=== PATIENT | male | born 1955 | race Caucasian/White ===

== ENCOUNTER → 2020-07-15 08:44 | Outpatient (CLI) | payer BC, SELFPAY ==
[2020-07-15 10:11] LABS: Add Manual Diff / Slide Review NO; Basophils Absolute Auto 100 /uL (0-100); Basophils Percent Auto 2.2 % (0-2); Eosinophils Absolute Auto 200 /uL (0-450); Hemoglobin 15.7 g/dL (13.5-17.5); Lymphocytes Absolute Auto 900 /uL (1100-4500); Lymphocytes Percent Auto 16.9 % (25-40); Mean Corpuscular HGB Conc 34.1 % (30-36); Mean Corpuscular Hemoglobin 34.8 PG (26-34); Mean Corpuscular Volume 102.1 fL (80-100); Monocytes Absolute Auto 600 /uL (0-900); Monocytes Percent Auto 10.8 % (3-14); Neutrophils Absolute Auto 3600 /uL (1500-7000); Neutrophils Percent Auto 67.1 % (50-75); Platelet Count 260 X10^3/uL (150-400); Red Blood Cell Count 4.51 X10^6/uL (4.5-5.9); Red Cell Distribution Width 17.2 % (11.6-14.8); White Blood Cell Count 5.3 X10^3/uL (4.5-11.0)
[2020-07-15 10:36] LABS: Alanine Aminotransferase 41 IU/L (<50); Albumin 4.5 g/dL (3.5-5.0); Albumin Globulin Ratio 1.4 (1.0-2.8); Alkaline Phosphatase 69 U/L (38-126); Aspartate Aminotransferase 36 IU/L (17-59); BUN Creatinine Ratio 22.2 (6-22); Bilirubin Total 0.7 mg/dL (0.2-1.3); Blood Urea Nitrogen 24 mg/dL (9-20); Calcium 9.5 mg/dL (8.4-10.2); Carbon Dioxide 30 mmol/L (22-32); Chloride 103 mmol/L (98-107); Cholesterol 231 mg/dL (140-199); Estimated Glomerular Filt Rate > 60.0 mL/min (>60); Globulin 3.3 g/dL (1.7-4.1); Glucose 97 mg/dL (80-110); HDL Cholesterol 39 mg/dL (40-60); HEMOLYSIS < 15 (0-50); LDL Cholesterol Calculated 165 mg/dL (<100); Potassium 4.3 mmol/L (3.4-5.1); Sodium 143 mmol/L (137-145); Total Protein 7.8 g/dL (6.3-8.2); Triglycerides 137 mg/dL (35-150)
== END ==
PROVIDERS: PCP Internal Medicine; Referring Provider Internal Medicine; Visit Provider Internal Medicine
DX: E78.2 Mixed hyperlipidemia (principal); K63.5 Polyp of colon
CPT/HCPCS: 36415; 80053; 80061; 84153; 85025

== ENCOUNTER 2021-06-09 12:01 | Emergency (ER) | payer BC, SELFPAY ==
[2021-06-09 12:51] VITALS: BP 132/75; PULSE 68; RESP 20; TEMP 36.8; O2SAT 96; BMI 26.4
--- NOTE | 2021-06-09 12:58 | DI.RAD.S_ITS ---
PROCEDURE: XR FINGER RT MIN 2V INDICATIONS: Smashed between a tree and a rock TECHNIQUE: AP hand, 2 views of the right 2nd finger(s) acquired. COMPARISON: None. FINDINGS: No fracture or dislocation. Soft tissue swelling about the distal second phalanx. IMPRESSION: No acute finding. Soft tissue swelling in the distal 2nd phalanx. Dictated by: Aris Camp M.D. on 06/09/2021 at 13:20 Approved by: Aris Camp M.D. on 06/09/2021 at 13:20
[2021-06-09 16:36] VITALS: BP 143/71; PULSE 56; RESP 16; O2SAT 98
[2021-06-09] MEDS: BUPIVACAINE 0.5% MDV 1 ML INJ (17:19)
--- NOTE | 2021-06-09 17:48 | PC.NURSE ---
after numbing by pac cleansed wound with hibiclens and water and irrigated with 500 ml sterile water, no debris noted after irrigation
--- NOTE | 2021-06-09 18:03 | ED_ITS ---
HPI - Extremity Injury (Upper) <Kj Crocker PA-C - Last Filed: 06/09/21 18:16> General Chief Complaint: Extremity Injury, Upper Stated Complaint: smashed right index finger and poss broken Time Seen by Provider: 06/09/21 16:49 Source: patient Mode of arrival: Ambulatory Limitations: no limitations History of Present Illness HPI narrative: Estevan presents today with chief complaint of smashing his finger in between a piece of wood and a rock earlier today. He reports immediate pain and bleeding. His last tetanus was 6 years ago. He is right-hand dominant. He denies any significant other injuries or acute concerns at this time. He denies being on any blood thinners. Related Data Allergies Allergy/AdvReac Type Severity Reaction Status Date / Time No Known Drug Allergies Allergy Verified 06/09/21 12:51 Review of Systems <Kj Crocker PA-C - Last Filed: 06/09/21 18:16> Review of Systems Narrative: As per HPI Patient History <Kj Crocker PA-C - Last Filed: 06/09/21 18:16> Social History Smoking Status: Never smoker Smoking Status: Never smoker Substance Use Type: does not use Exam <VERNON George Last Filed: 06/09/21 18:16> Narrative Exam Narrative: Exam Narrative: Const General: cooperative, healthy appearing, comfortable, no acute distress, well developed and well groomed Nutritional Appearance: average body habitus Orientation: alert and oriented x3 HENMT Head: normal to inspection and atraumatic Ears: hearing grossly normal bilaterally Nose: external nose normal and nares normal Face and sinus: normal facial exam Neck Neck: normal visual inspection and supple Resp Effort & Inspection: normal respiratory effort, able to speak in complete sentences, no audible wheezes, not labored, no nasal flaring and no respiratory distress Extremities Upper extremities exposed. 4 cm laceration to dorsal distal right index finger. No nail involvement. Distal sensation is intact. Capillary refill is normal. Bony tenderness noted. Neuro General: alert, oriented x3, gait normal, tone normal and moves all extremities Cognition: normal cognition Speech: speech normal Gait: normal gait Psych Appearance: grossly normal and well kempt Mental Status: mental status grossly normal Speech and Movement: speech and movement normal Mood: congruent mood Affect: normal affect Initial Vital Signs Initial Vital Signs: Vital Signs Temperature 98.2 F 06/09/21 12:51 Pulse Rate 68 06/09/21 12:51 Respiratory Rate 20 06/09/21 12:51 Blood Pressure 132/75 06/09/21 12:51 Pulse Oximetry 96 06/09/21 12:51 <Rachel Villagomez DO - Last Filed: 06/13/21 08:56> Initial Vital Signs Initial Vital Signs: Vital Signs Temperature 98.2 F 06/09/21 12:51 Pulse Rate 68 06/09/21 12:51 Respiratory Rate 20 06/09/21 12:51 Blood Pressure 132/75 06/09/21 12:51 Pulse Oximetry 96 06/09/21 12:51 Procedures <VERNON George Last Filed: 06/09/21 18:16> Laceration Repair Laceration 1: Site: hand Side (If applicable): right Size (cm): 4 Description: linear Depth: simple, single layer Local Anesthetic: bupivacaine 0.5% Amount of anesthesia used (mL): 2 Pre-repair: wound explored and irrigated extensively Skin layer closed with: nylon Size (cm): 4-0 Number of sutures: 5 Technique: simple, interrupted Course <VRENON George Last Filed: 06/09/21 18:16> Orders Ordered: Discontinued Medications Bupivacaine HCl (Bupivacaine 0.5% Mdv) 1 ml INJ INTRA-OP ONE Stop: 06/09/21 16:58 Last Admin: 06/09/21 17:19 Dose: 1 ml Documented by: LUI Vital Signs Vital signs: Vital Signs - 8 hr 06/09/21 12:51 06/09/21 16:36 Temperature 98.2 F Pulse Rate 68 56 L Respiratory Rate 20 16 Blood Pressure 132/75 143/71 H Pulse Oximetry 96 98 <DO Eliana Benedict Last Filed: 06/13/21 08:56> Orders Ordered: Discontinued Medications Bupivacaine HCl (Bupivacaine 0.5% Mdv) 1 ml INJ INTRA-OP ONE Stop: 06/09/21 16:58 Last Admin: 06/09/21 17:19 Dose: 1 ml Documented by: LUI Vital Signs Vital signs: Vital Signs - 8 hr 06/09/21 12:51 06/09/21 16:36 Temperature 98.2 F Pulse Rate 68 56 L Respiratory Rate 20 16 Blood Pressure 132/75 143/71 H Pulse Oximetry 96 98 MDM - Extremity Injury (Upper) <Kj Crocker PA-C - Last Filed: 06/09/21 18:16> [facility] Narrative Medical decision making narrative: Differential diagnosis considered includes open fracture, tendon injury, nerve injury. Patient does not have any evidence of fracture or dislocation on x-ray. I cannot visualize the tendon with laceration and he was neurovascularly intact pre digital block. He has intact range of motion. I do not suspect any significant underlying injury. Discharge Plan Departure Patient Disposition: Home Clinical Impression: Finger laceration Qualifiers: Encounter type: initial encounter Finger: index finger Damage to nail status: without damage Foreign body presence: without foreign body Laterality: right Qualified Code(s): S61.210A - Laceration without foreign body of right index finger without damage to nail, initial encounter Instructions: DI for Laceration Repair -- Finger Activity Restrictions/Additional Instructions: It was nice to meet you this afternoon. Please monitor for signs of infection which includes increased redness, swelling, pain, fever and return if you experience any of these symptoms. I would like you to apply topical antibiotics to this for the next 3 days. Please use ibuprofen or acetaminophen as needed for pain management. Sutures will need to come out in 10 days. Please either return here or follow-up with your PCP to get these taken out. Thank you Kj Crocker PA-C Referrals: Jorge Romano MD [Primary Care Provider] - <Rachel Villagomez DO - Last Filed: 06/13/21 08:56> Cosign ED Attending Cosignature Attestation: [facility] was [facility] for [facility]. Documentation has been reviewed.
[2021-06-09 18:16] VITALS: BP 133/70; PULSE 80; RESP 18; O2SAT 99
== END 2021-06-09 18:20 | disposition home or self-care (01) ==
PROVIDERS: Emergency Provider Physician Assistant; PCP Internal Medicine
DX: S61.210A Laceration without foreign body of right index finger without damage to nail, initial encounter (principal); W23.0XXA Caught, crushed, jammed, or pinched between moving objects, initial encounter
CPT/HCPCS: 12002; 73140; 99283

== ENCOUNTER → 2021-11-13 07:11 | Outpatient (CLI) | payer MEDICARE, SELFPAY ==
[2021-11-13 08:05] LABS: COVID19 -Nasal RAPID Negative (Negative)
== END ==
PROVIDERS: PCP Internal Medicine; Visit Provider Student in an Organized Health Care Education/Training Program
DX: Z20.822 Contact with and (suspected) exposure to COVID-19 (principal); J02.9 Acute pharyngitis, unspecified
CPT/HCPCS: 87070; 87635

== ENCOUNTER → 2023-06-18 06:56 | Outpatient (CLI) | payer OTHER, SELFPAY ==
[2023-06-18 07:57] LABS: Hemoglobin A1C% w Est Avg Glu 5.4 % (4.0-6.0)
[2023-06-18 08:07] LABS: Alanine Aminotransferase 27 IU/L (<50); Albumin 4.2 g/dL (3.5-5.0); Albumin Globulin Ratio 1.4 (1.0-2.8); Alkaline Phosphatase 87 U/L (38-126); Aspartate Aminotransferase 32 IU/L (17-59); BUN Creatinine Ratio 15.4 (6-22); Bilirubin Total 0.9 mg/dL (0.2-1.3); Blood Urea Nitrogen 18 mg/dL (9-20); Calcium 9.2 mg/dL (8.4-10.2); Carbon Dioxide 25 mmol/L (22-32); Chloride 103 mmol/L (98-107); Cholesterol 148 mg/dL (140-199); Estimated Glomerular Filt Rate > 60 mL/min (>60); Glucose 90 mg/dL (80-110); HDL Cholesterol 30 mg/dL (40-60); HEMOLYSIS 38 (0-50); LDL Cholesterol Calculated 85 mg/dL (<100); Potassium 5.4 mmol/L (3.4-5.1); Sodium 139 mmol/L (137-145); Total Protein 7.2 g/dL (6.3-8.2); Triglycerides 167 mg/dL (35-150)
[2023-06-19 09:36] LABS: PSA Free % 27.5 % (.); PSA, Total 5.9 ng/mL (0.0-4.0)
== END ==
PROVIDERS: PCP Family Medicine; Referring Provider Family Medicine; Visit Provider Family Medicine
DX: Z13.89 Encounter for screening for other disorder (principal); Z80.42 Family history of malignant neoplasm of prostate; Z80.0 Family history of malignant neoplasm of digestive organs
CPT/HCPCS: 36415; 80053; 80061; 83036; 84153; 84154

== ENCOUNTER → 2023-09-17 06:56 | Outpatient (CLI) | payer MEDICARE, SELFPAY ==
[2023-09-20 11:03] LABS: PSA Free % 33.8 % (.)
== END ==
PROVIDERS: PCP Family Medicine; Referring Provider Family Medicine; Visit Provider Family Medicine
DX: R97.20 Elevated prostate specific antigen [PSA] (principal)
CPT/HCPCS: 36415; 84153; 84154

== ENCOUNTER 2023-09-30 08:13 | Day surgery (SDC) | payer OTHER, SELFPAY ==
[2023-09-30] MEDS: LACTATED RINGERS 1,000 ML 150 ML IV (08:26)
[2023-09-30 08:40] VITALS: BP 147/83; PULSE 66; RESP 16; TEMP 36.1; O2SAT 95; BMI 26.2
--- NOTE | 2023-09-30 09:16 | P.HP_ITS ---
History of Present Illness History of Present Illness Date Patient Seen: 09/30/23 Chief complaint: Screening Colonoscopy Narrative: 68-year-old man family history of colon cancer here for screening colonoscopy. Last colonoscopy 6 years ago. No abdominal concerns today. [facility] Medical History B12 deficiency Allergies (~1969) Right calf pain Hemorrhoid (~1988) Family history of prostate cancer DVT (deep venous thrombosis) Gout (~2022) Colon polyps (~1988) Family history of colon cancer Elevated PSA measurement (~2015) Family History Father Cancer Mother Thyroid disease Sister Hypertension History of heart disease Social History household members: spouse Smoking Status: Never smoker alcohol intake: never Meds Home Medications and Allergies Home Medications Medication Instructions Recorded Confirmed Type rosuvastatin 20 mg tablet 20 mg PO DAILY 11/13/21 09/30/23 History CoQ10 liquid 1 tab PO DAILY 06/17/23 09/30/23 History aged garlic extract 1 tab PO DAILY 06/17/23 09/30/23 History cholecalciferol (vitamin D3) 125 125 mcg PO DAILY 06/17/23 09/30/23 History mcg (5,000 unit) capsule jbetfnp-rebw-tzunf-oreg-capryl 1 tab PO DAILY 06/17/23 09/30/23 History vitamin E (dl, acetate) PO 06/17/23 09/16/23 History finasteride 5 mg tablet 5 mg PO DAILY #90 tabs 09/16/23 09/30/23 Rx Allergies Allergy/AdvReac Type Severity Reaction Status Date / Time No Known Drug Allergies Allergy Verified 09/30/23 08:30 Exam Vital Signs (past 8 hours): - 09/30/23 08:40 Temperature 97.0 F L Pulse Rate 66 Respiratory Rate 16 Blood Pressure 147/83 H Pulse Oximetry 95 Oxygen Delivery Method Room Air Oxygen Delivery Method Room Air Narrative Exam Narrative: General adult man alert oriented no acute distress Chest nonlabored respiration Extremities warm well perfused Assessment & Plan Assessment and plan (1) Family history of colon cancer: Status: Acute Assessment & Plan narrative: The patient requires colorectal screening and colonoscopy is recommended. Technical details were discussed. Risks, benefits, alternatives explained. Risks including but not limited to myocardial infarction, aspiration, bleeding, pain, missed lesion, incomplete examination, need for further radiographic studies, colonic perforation, and need for major abdominal surgery were discussed. All questions were answered to their satisfaction, and they are in agreement with this plan.
--- NOTE | 2023-09-30 09:36 | P.OP.COLON_ITS ---
Operative Date/Time/Diagnoses Date of procedure: 09/30/23 Time of procedure: 09:36 Pre-op diagnosis: Family history of colon cancer Post-op diagnosis: same Procedure & Clinicians Study performed: Colonoscopy Same procedure as scheduled: Yes Indications: Family history of colon cancer Surgeon: Jorge Caldera Procedure Notes Procedure in detail: The history and physical was performed/updated and the patient is ASA class is 2. The procedure was discussed in detail with the patient. Potential risks complications including infection, bleeding, missed diagnosis, perforation, need for surgery, and were explained. Their questions were answered and informed consent was obtained. Patient was brought to the procedure room and placed standard monitoring equipment. The patient's vital signs were monitored continuously throughout the entire procedure. Prior to starting time-out was performed. The patient was placed in the left lateral recumbent position. Procedural sedation was administered by anesthesia. Examination began with a thorough inspection of the perianal area there was no evidence of fissures, fistulae, external hemorrhoids or cutaneous malignancy. The colonoscopy scope was then placed into the anal canal and was advanced to the cecum, which was identified by the ileocecal valve, the appendiceal orifice and the confluence of the taenia. The scope was then slowly withdrawn examining colon thoroughly in all directions, irrigating it of any residual stool. The scope was retroflexed within the rectum The patient tolerated the procedure well. They will be discharged once criteria are met. The prep was of good/excellent quality. The withdrawl time was 7 minutes. FINDINGS * Unremarkable colonoscopy. No masses polyps or inflammation. Specimen(s): none sent Impression: Normal colonoscopy Post-procedure Recommendations: Colonoscopy in 5 years Disposition: same day surgery
[2023-09-30 09:40] VITALS: BP 100/60; PULSE 81; RESP 23; TEMP 36.3; O2SAT 93
[2023-09-30 09:45] VITALS: BP 113/68; PULSE 70; RESP 14; TEMP 36.3; O2SAT 96
[2023-09-30 09:54] VITALS: BP 120/77; PULSE 76; RESP 12; O2SAT 95
== END 2023-09-30 10:12 | disposition home or self-care (01) ==
PROVIDERS: PCP Family Medicine; Referring Provider Surgery; Visit Provider Surgery
PROC: 0DJD8ZZ Inspection of Lower Intestinal Tract, Via Natural or Artificial Opening Endoscopic (ICD-10-PCS; CPT 45378; principal; 2023-09-30 09:15)
DX: Z12.11 Encounter for screening for malignant neoplasm of colon (principal); Z80.0 Family history of malignant neoplasm of digestive organs
CPT/HCPCS: G0105; J2704

== ENCOUNTER → 2024-01-30 07:19 | Outpatient (CLI) | payer OTHER, SELFPAY ==
[2024-01-30 09:12] LABS: COVID-19 CEPHEID 4-PLEX PCR Negative (Negative); Influenza A - CEPHEID Flu A NEGATIVE (NEGATIVE); Influenza B - CEPHEID Flu B NEGATIVE (NEGATIVE); Respiratory Syncytial Virus Negative (Negative)
== END ==
PROVIDERS: PCP Family Medicine; Visit Provider Physician Assistant Surgical
DX: R05.9 Cough, unspecified (principal)
CPT/HCPCS: 0241U

== ENCOUNTER → 2024-04-02 06:49 | Outpatient (CLI) | payer OTHER, SELFPAY ==
[2024-04-02 08:58] LABS: Add Manual Diff / Slide Review NO; Basophils Absolute Auto 0 /uL (0-100); Basophils Percent Auto 0.5 % (0-2); Eosinophils Absolute Auto 400 /uL (0-450); Eosinophils Percent Auto 4.2 % (2-4); Lymphocytes Absolute Auto 600 /uL (1100-4500); Lymphocytes Percent Auto 7.2 % (25-40); Mean Corpuscular Hemoglobin 27.9 PG (26-34); Mean Corpuscular Volume 84.6 fL (80-100); Monocytes Absolute Auto 700 /uL (0-900); Monocytes Percent Auto 8.4 % (3-14); Neutrophils Absolute Auto 7000 /uL (1500-7000); Neutrophils Percent Auto 79.7 % (50-75); Platelet Count 366 X10^3/uL (150-400); Red Cell Distribution Width 20.1 % (11.6-14.8); White Blood Cell Count 8.7 X10^3/uL (4.5-11.0)
[2024-04-02 09:02] LABS: Red Blood Cell Count 7.65 X10^6/uL (4.5-5.9)
[2024-04-02 09:06] LABS: Hematocrit 64.8 % (41-53); Hemoglobin 21.4 g/dL (13.5-17.5)
[2024-04-02 09:14] LABS: Iron 80 ug/dL (49-181)
[2024-04-02 09:18] LABS: Alanine Aminotransferase 39 IU/L (<50); Albumin 4.8 g/dL (3.5-5.0); Albumin Globulin Ratio 1.5 (1.0-2.8); Alkaline Phosphatase 107 U/L (38-126); Aspartate Aminotransferase 55 IU/L (17-59); BUN Creatinine Ratio 17.3 (6-22); Bilirubin Total 1.1 mg/dL (0.2-1.3); Blood Urea Nitrogen 19 mg/dL (9-20); Carbon Dioxide 23 mmol/L (22-32); Chloride 105 mmol/L (98-107); Cholesterol 183 mg/dL (140-199); Estimated Glomerular Filt Rate > 60 mL/min (>60); Globulin 3.1 g/dL (1.7-4.1); Glucose 81 mg/dL (80-110); HDL Cholesterol 42 mg/dL (40-60); HEMOLYSIS 49 (0-50); LDL Cholesterol Calculated 93 mg/dL (<100); Sodium 138 mmol/L (137-145); Total Protein 7.9 g/dL (6.3-8.2); Triglycerides 240 mg/dL (35-150)
[2024-04-02 09:23] LABS: Potassium 5.7 mmol/L (3.4-5.1)
[2024-04-02 09:25] LABS: HEMOLYSIS 109 (0-50)
[2024-04-02 09:26] LABS: Percent Iron Saturation 21 % (20-50); Total Iron Binding Capacity 383 ug/dL (261-462); Transferrin 302 mg/dL (206-381)
[2024-04-02 10:06] LABS: Vitamin B12 > 1000 pg/mL (239-931)
[2024-04-02 11:19] LABS: RBC Morphology Normal Morphology
[2024-04-04 08:07] LABS: PSA Free % 25.2 % (.); PSA, Total 3.1 ng/mL (0.0-4.0)
== END ==
PROVIDERS: PCP Family Medicine; Referring Provider Family Medicine; Visit Provider Family Medicine
DX: E53.8 Deficiency of other specified B group vitamins (principal); R97.20 Elevated prostate specific antigen [PSA]; I82.409 Acute embolism and thrombosis of unspecified deep veins of unspecified lower extremity
CPT/HCPCS: 36415; 80053; 80061; 82607; 83540; 83550; 84153; 84154; 85025

== ENCOUNTER → 2024-04-03 07:40 | Outpatient (CLI) | payer OTHER, SELFPAY ==
[2024-04-03 08:14] LABS: Add Manual Diff / Slide Review NO; Basophils Absolute Auto 0 /uL (0-100); Basophils Percent Auto 0.3 % (0-2); Eosinophils Absolute Auto 400 /uL (0-450); Eosinophils Percent Auto 3.9 % (2-4); Lymphocytes Absolute Auto 600 /uL (1100-4500); Lymphocytes Percent Auto 6.8 % (25-40); Mean Corpuscular HGB Conc 33.1 % (30-36); Mean Corpuscular Hemoglobin 27.9 PG (26-34); Mean Corpuscular Volume 84.2 fL (80-100); Monocytes Absolute Auto 800 /uL (0-900); Monocytes Percent Auto 8.7 % (3-14); Neutrophils Absolute Auto 7500 /uL (1500-7000); Neutrophils Percent Auto 80.3 % (50-75); Platelet Count 351 X10^3/uL (150-400); White Blood Cell Count 9.4 X10^3/uL (4.5-11.0)
[2024-04-03 08:58] LABS: Red Blood Cell Count 7.55 X10^6/uL (4.5-5.9)
[2024-04-03 09:02] LABS: Hematocrit 63.6 % (41-53)
== END ==
PROVIDERS: PCP Family Medicine; Referring Provider Family Medicine; Visit Provider Family Medicine
DX: D58.2 Other hemoglobinopathies (principal); R71.8 Other abnormality of red blood cells
CPT/HCPCS: 85025

== ENCOUNTER 2024-04-03 13:03 | Emergency (ER) | payer OTHER, SELFPAY ==
[2024-04-03 13:06] VITALS: BP 140/66; PULSE 62; RESP 16; TEMP 36.8; O2SAT 94; BMI 27.1
--- NOTE | 2024-04-03 13:30 | ED_ITS ---
HPI - Recheck/Abnormal Lab/Rx General Chief Complaint: Recheck/Abnormal Lab/Rx Stated Complaint: dr rogelio temple has an appt something with blood Time Seen by Provider: 04/03/24 13:08 Source: patient Mode of arrival: Ambulatory History of Present Illness HPI narrative: 69-year-old male presents for abnormal laboratory work. Six months ago patient was started on finasteride by his primary care doctor and he was getting routine labs. His primary doctor called him this morning recommending he have his blood rechecked. This afternoon he received a phone call stating that he needed to come to the emergency department for evaluation. Patient's hemoglobin yesterday 21.4, today 21.0. Patient states that he feels like he has been in his usual state of health. Denies personal or family history of bleeding or clotting disorders. His only medications are finasteride, rosuvastatin, and a daily baby aspirin. Related Data Home Medications Medication Instructions Recorded Confirmed CoQ10 liquid 1 tab PO DAILY 06/17/23 09/30/23 aged garlic extract 1 tab PO DAILY 06/17/23 09/30/23 cholecalciferol (vitamin D3) 125 125 mcg PO DAILY 06/17/23 09/30/23 mcg (5,000 unit) capsule evpevor-rphe-khvfg-oreg-capryl 1 tab PO DAILY 06/17/23 09/30/23 vitamin E (dl, acetate) PO 06/17/23 09/16/23 Previous Rx's Medication Instructions Recorded rosuvastatin 20 mg tablet 20 mg PO DAILY #90 tabs 12/05/23 finasteride 5 mg tablet 5 mg PO DAILY #90 tabs 03/16/24 Allergies Allergy/AdvReac Type Severity Reaction Status Date / Time No Known Drug Allergies Allergy Verified 01/30/24 07:45 Patient History Medical History B12 deficiency Allergies (~1969) Right calf pain Hemorrhoid (~1988) Family history of prostate cancer DVT (deep venous thrombosis) Gout (~2022) Colon polyps (~1988) Family history of colon cancer Elevated PSA measurement (~2015) Family History Father Cancer Mother Thyroid disease Sister Hypertension History of heart disease Social History household members: spouse Smoking Status: Never smoker alcohol intake: never Smoking Status: Never smoker Substance Use Type: does not use Exam Initial Vital Signs Initial Vital Signs: Vital Signs Temperature 98.2 F 04/03/24 13:06 Pulse Rate 62 04/03/24 13:06 Respiratory Rate 16 04/03/24 13:06 Blood Pressure 140/66 04/03/24 13:06 Pulse Oximetry 94 04/03/24 13:06 Oxygen Delivery Method Room Air 04/03/24 13:06 Const: Awake, alert, no acute distress, nontoxic appearing Cardiac: regular rate, regular rhythm RESP: unlabored, clear bilaterally, no wheezing GI: Soft, nontender, nondistended, no rebound, no guarding MSK: Atraumatic, full range of motion, pulses equal Skin: Warm, Dry, intact, no rashes Neuro: AO x3, CN II-XII grossly intact, moves all extremities Course Orders Ordered: ED Orders 04/03/24 13:25 CBC Auto Diff [Complete Blood Count AUTO DIFF] Stat Ferritin Stat LDH [Lactate Dehydrogenase] Stat PT [Prothrombin Time INR] Stat Discontinued Medications Sodium Chloride (Normal Saline 0.9%) 1,000 mls @ 1,000 mls/hr IV BOLUS ONE Stop: 04/03/24 14:08 Last Admin: 04/03/24 13:39 Dose: 1,000 mls/hr Documented By: ELENI Vital Signs Vital signs: Vital Signs - 8 hr 04/03/24 13:06 Temperature 98.2 F Pulse Rate 62 Respiratory Rate 16 Blood Pressure 140/66 Pulse Oximetry 94 Oxygen Delivery Method Room Air MDM - Recheck/Abnormal Lab/Rx Lab Data 04/03/24 13:25 Labs: Lab Results 04/03/24 Range/Units 13:25 WBC 9.8 (4.5-11.0) X10^3/uL RBC 7.28 H (4.5-5.9) X10^6/uL Hgb 20.5 H (13.5-17.5) g/dL Hct 61.4 H* (41-53) % MCV 84.3 (80-100) fL MCH 28.2 (26-34) PG MCHC 33.4 (30-36) % RDW 19.4 H (11.6-14.8) % Plt Count 369 (150-400) X10^3/uL Neut % (Auto) 79.2 H (50-75) % Lymph % (Auto) 7.8 L (25-40) % [place] % (Auto) 8.3 (3-14) % Eos % (Auto) 3.1 (2-4) % Baso % (Auto) 1.6 (0-2) % Neut # (Auto) 7700 H (0394-2336) /uL Lymph # (Auto) 800 L (9935-0793) /uL [place] # (Auto) 800 (0-900) /uL Eos # (Auto) 300 (0-450) /uL Baso # (Auto) 200 H (0-100) /uL PT 11.4 (9.4-12.5) SECONDS INR 1.0 (0.9-1.3) Lactate Dehydrogenase 306 H (120-246) U/L MDM Narrative Medical decision making narrative: Well-appearing patient with incidental findings of elevated hemoglobin and hematocrit. Confirmed on recheck. Case discussed with Dr. Tomlinson of Hematology Oncology at [facility]. He states that this is not something that requires emergent phlebotomy and patient was already on aspirin, which is what would be recommended for someone with elevated hemoglobin and hematocrit. He stated that it would need to be determined if patient has primary versus secondary polycythemia vera, and recommended drawing of erythropoietin and CLAUDIO 2 mutation testing. Patient can be followed up with a Heme-Onc referral. Discussed Heme-Onc recommendations with patient's primary care doctor Dr. Jain, who will order the testing and he will follow up patient in clinic. Patient has no known secondary causes of polycythemia vera including sleep apnea, testosterone use, or tobacco use. Patient updated of Heme-Onc recommendations. He will follow up with his primary care doctor. Discharge Plan Departure Patient Disposition: Home Clinical Impression: Elevated hemoglobin Instructions: DI for Primary Polycythemia Activity Restrictions/Additional Instructions: You were seen today for elevated hemoglobin, which falls under the umbrella of ?polycythemic?. There are several different types of this condition, and more work needs to be done before you find out what kind you have. Follow up with Dr. Mendes for further lab testing. Prescriptions: No Action rosuvastatin 20 mg tablet 20 mg PO DAILY Qty: 90 2RF finasteride 5 mg tablet 5 mg PO DAILY Qty: 90 1RF aged garlic extract 1 tab PO DAILY uafugpd-krjf-gthuy-oreg-capryl 1 tab PO DAILY CoQ10 liquid 1 tab PO DAILY vitamin E (dl, acetate) PO Rx Instructions: 400 IU cholecalciferol (vitamin D3) 125 mcg (5,000 unit) capsule 125 mcg PO DAILY Referrals: Myron Mendes, [Primary Care Provider] - Stand Alone Forms: Patient Portal/API
[2024-04-03] MEDS: SODIUM CHLORIDE 0.9% 1,000 ML 1000 ML IV (13:39)
[2024-04-03 13:50] LABS: Prothrombin Time 11.4 SECONDS (9.4-12.5)
[2024-04-03 13:53] LABS: Add Manual Diff / Slide Review NO; Basophils Absolute Auto 200 /uL (0-100); Basophils Percent Auto 1.6 % (0-2); Eosinophils Absolute Auto 300 /uL (0-450); Eosinophils Percent Auto 3.1 % (2-4); Hemoglobin 20.5 g/dL (13.5-17.5); Lactate Dehydrogenase 306 U/L (120-246); Lymphocytes Absolute Auto 800 /uL (1100-4500); Lymphocytes Percent Auto 7.8 % (25-40); Mean Corpuscular HGB Conc 33.4 % (30-36); Mean Corpuscular Hemoglobin 28.2 PG (26-34); Mean Corpuscular Volume 84.3 fL (80-100); Monocytes Absolute Auto 800 /uL (0-900); Monocytes Percent Auto 8.3 % (3-14); Neutrophils Absolute Auto 7700 /uL (1500-7000); Neutrophils Percent Auto 79.2 % (50-75); Platelet Count 369 X10^3/uL (150-400); Red Cell Distribution Width 19.4 % (11.6-14.8); White Blood Cell Count 9.8 X10^3/uL (4.5-11.0)
[2024-04-03 13:56] LABS: Red Blood Cell Count 7.28 X10^6/uL (4.5-5.9)
[2024-04-03 13:59] LABS: Hematocrit 61.4 % (41-53)
[2024-04-03 14:48] LABS: Ferritin 12 ng/mL (18-464)
[2024-04-03 15:08] VITALS: BP 127/88; PULSE 60; RESP 16; TEMP 36.6; O2SAT 93
== END 2024-04-03 15:09 | disposition home or self-care (01) ==
PROVIDERS: Emergency Provider Emergency Medicine; PCP Family Medicine
DX: D58.2 Other hemoglobinopathies (principal)
CPT/HCPCS: 82728; 83615; 85025; 85610; 96360; 99283; 99284

== ENCOUNTER → 2024-04-05 13:33 | Outpatient (CLI) | payer OTHER, SELFPAY ==
[2024-04-07 19:08] LABS: Erythropoietin 1.1 mIU/mL (2.6-18.5)
== END ==
PROVIDERS: PCP Family Medicine; Referring Provider Family Medicine; Visit Provider Family Medicine
DX: D45 Polycythemia vera (principal)
CPT/HCPCS: 36415; 82668

== ENCOUNTER → 2024-04-12 06:51 | Outpatient (CLI) | payer OTHER, SELFPAY | PROVIDERS: PCP Family Medicine; Referring Provider Family Medicine; Visit Provider Family Medicine | DX: D45 Polycythemia vera (principal) | CPT/HCPCS: 36415; 81270 ==

== ENCOUNTER → 2024-08-11 09:32 | Outpatient (CLI) | payer OTHER, SELFPAY ==
[2024-08-11 12:28] LABS: Hematocrit 64.1 % (41-53)
[2024-08-11 12:33] LABS: Ferritin 14 ng/mL (18-464)
== END ==
PROVIDERS: PCP Family Medicine; Referring Provider Internal Medicine Hematology & Oncology; Visit Provider Internal Medicine Hematology & Oncology
DX: D45 Polycythemia vera (principal)
CPT/HCPCS: 36415; 82728; 85014

== ENCOUNTER → 2024-08-26 14:11 | Outpatient (CLI) | payer OTHER, SELFPAY ==
[2024-08-26 14:37] LABS: Add Manual Diff / Slide Review NO; Basophils Absolute Auto 100 /uL (0-100); Basophils Percent Auto 0.9 % (0-2); Eosinophils Absolute Auto 200 /uL (0-450); Eosinophils Percent Auto 1.6 % (2-4); Hematocrit 59.6 % (41-53); Hemoglobin 19.2 g/dL (13.5-17.5); Lymphocytes Absolute Auto 600 /uL (1100-4500); Lymphocytes Percent Auto 4.4 % (25-40); Mean Corpuscular HGB Conc 32.2 % (30-36); Mean Corpuscular Hemoglobin 26.3 PG (26-34); Mean Corpuscular Volume 81.7 fL (80-100); Monocytes Absolute Auto 900 /uL (0-900); Monocytes Percent Auto 6.5 % (3-14); Neutrophils Absolute Auto 11700 /uL (1500-7000); Neutrophils Percent Auto 86.6 % (50-75); Platelet Count 426 X10^3/uL (150-400); Red Cell Distribution Width 18.1 % (11.6-14.8); White Blood Cell Count 13.5 X10^3/uL (4.5-11.0)
[2024-08-26 14:38] LABS: Red Blood Cell Count 7.29 X10^6/uL (4.5-5.9)
[2024-08-26 14:58] LABS: Alanine Aminotransferase 27 IU/L (<50); Albumin 4.4 g/dL (3.5-5.0); Albumin Globulin Ratio 1.5 (1.0-2.8); Alkaline Phosphatase 95 U/L (38-126); Aspartate Aminotransferase 39 IU/L (17-59); BUN Creatinine Ratio 25.2 (6-22); Bilirubin Total 0.9 mg/dL (0.2-1.3); Blood Urea Nitrogen 31 mg/dL (9-20); Calcium 9.5 mg/dL (8.4-10.2); Carbon Dioxide 23 mmol/L (22-32); Chloride 103 mmol/L (98-107); Estimated Glomerular Filt Rate > 60 mL/min (>60); Glucose 95 mg/dL (80-110); HEMOLYSIS 16 (0-50); Sodium 135 mmol/L (137-145); Total Protein 7.4 g/dL (6.3-8.2)
[2024-08-28 07:09] LABS: PSA Free % 31.5 % (.); PSA, Total 4.8 ng/mL (0.0-4.0)
== END ==
PROVIDERS: PCP Family Medicine; Referring Provider Internal Medicine Hematology & Oncology; Visit Provider Internal Medicine Hematology & Oncology
DX: D45 Polycythemia vera (principal); R97.20 Elevated prostate specific antigen [PSA]; M10.9 Gout, unspecified; Z80.42 Family history of malignant neoplasm of prostate
CPT/HCPCS: 80053; 84153; 84154; 85025

== ENCOUNTER → 2024-09-07 14:02 | Outpatient (CLI) | payer OTHER, SELFPAY ==
[2024-09-07 15:29] LABS: Hematocrit 58.6 % (41-53)
[2024-09-07 16:47] LABS: Ferritin 10 ng/mL (18-464)
== END ==
PROVIDERS: PCP Family Medicine; Referring Provider Internal Medicine Hematology & Oncology; Visit Provider Internal Medicine Hematology & Oncology
DX: D45 Polycythemia vera (principal)
CPT/HCPCS: 36415; 82728; 85014

== ENCOUNTER → 2024-09-21 06:56 | Outpatient (CLI) | payer OTHER, SELFPAY ==
[2024-09-21 08:52] LABS: Ferritin 12 ng/mL (18-464)
== END ==
PROVIDERS: PCP Family Medicine; Referring Provider Internal Medicine Hematology & Oncology; Visit Provider Internal Medicine Hematology & Oncology
DX: D45 Polycythemia vera (principal)
CPT/HCPCS: 36415; 82728; 85014

== ENCOUNTER → 2024-10-06 06:43 | Outpatient (CLI) | payer OTHER, SELFPAY ==
[2024-10-06 09:25] LABS: Hematocrit 52.3 % (41-53)
== END ==
PROVIDERS: PCP Family Medicine; Referring Provider Internal Medicine Hematology & Oncology; Visit Provider Internal Medicine Hematology & Oncology
DX: D45 Polycythemia vera (principal)
CPT/HCPCS: 36415; 85014

== ENCOUNTER → 2024-10-21 12:18 | Outpatient (CLI) | payer OTHER, SELFPAY ==
[2024-10-21 12:38] LABS: Hematocrit 52.2 % (41-53); Hemoglobin 16.2 g/dL (13.5-17.5)
== END ==
PROVIDERS: PCP Family Medicine; Referring Provider Internal Medicine Hematology & Oncology; Visit Provider Internal Medicine Hematology & Oncology
DX: D45 Polycythemia vera (principal)
CPT/HCPCS: 36415; 85014; 85018

== ENCOUNTER → 2024-11-04 07:13 | Outpatient (CLI) | payer OTHER, SELFPAY ==
[2024-11-04 07:30] LABS: Hematocrit 49.8 % (41-53); Hemoglobin 15.7 g/dL (13.5-17.5)
== END ==
LOC: LAB 07:17
PROVIDERS: PCP Family Medicine; Referring Provider Internal Medicine Hematology & Oncology; Visit Provider Internal Medicine Hematology & Oncology
DX: D45 Polycythemia vera (principal)
CPT/HCPCS: 36415; 85014; 85018

== ENCOUNTER → 2024-11-18 07:47 | Outpatient (CLI) | payer OTHER, SELFPAY ==
[2024-11-18 08:18] LABS: Hematocrit 46.5 % (41-53)
== END ==
PROVIDERS: PCP Family Medicine; Referring Provider Internal Medicine Hematology & Oncology; Visit Provider Internal Medicine Hematology & Oncology
DX: D45 Polycythemia vera (principal)
CPT/HCPCS: 36415; 85014

== ENCOUNTER → 2024-12-02 08:32 | Outpatient (CLI) | payer OTHER, SELFPAY ==
[2024-12-02 10:03] LABS: Hematocrit 44.3 % (41-53)
== END ==
PROVIDERS: PCP Family Medicine; Referring Provider Internal Medicine Hematology & Oncology; Visit Provider Internal Medicine Hematology & Oncology
DX: D45 Polycythemia vera (principal)
CPT/HCPCS: 36415; 85014

== ENCOUNTER → 2024-12-30 06:51 | Outpatient (CLI) | payer OTHER, SELFPAY ==
[2024-12-30 08:08] LABS: Add Manual Diff / Slide Review NO; Basophils Absolute Auto 100 /uL (0-100); Basophils Percent Auto 0.9 % (0-2); Eosinophils Absolute Auto 500 /uL (0-450); Hematocrit 43.9 % (41-53); Hemoglobin 13.8 g/dL (13.5-17.5); Lymphocytes Absolute Auto 800 /uL (1100-4500); Lymphocytes Percent Auto 7.4 % (25-40); Mean Corpuscular HGB Conc 31.4 % (30-36); Mean Corpuscular Hemoglobin 22.2 PG (26-34); Mean Corpuscular Volume 70.7 fL (80-100); Monocytes Absolute Auto 600 /uL (0-900); Monocytes Percent Auto 5.6 % (3-14); Neutrophils Absolute Auto 8600 /uL (1500-7000); Neutrophils Percent Auto 81.1 % (50-75); Platelet Count 619 X10^3/uL (150-400); Red Blood Cell Count 6.21 X10^6/uL (4.5-5.9); Red Cell Distribution Width 18.1 % (11.6-14.8); White Blood Cell Count 10.6 X10^3/uL (4.5-11.0)
[2024-12-30 08:13] LABS: HEMOLYSIS < 15 (0-50); Iron 24 ug/dL (49-181)
[2024-12-30 08:18] LABS: Alanine Aminotransferase 25 IU/L (<50); Albumin 4.5 g/dL (3.5-5.0); Albumin Globulin Ratio 1.7 (1.0-2.8); Alkaline Phosphatase 78 U/L (38-126); Aspartate Aminotransferase 31 IU/L (17-59); BUN Creatinine Ratio 21.9 (6-22); Bilirubin Total 0.6 mg/dL (0.2-1.3); Blood Urea Nitrogen 28 mg/dL (9-20); Calcium 9.9 mg/dL (8.4-10.2); Carbon Dioxide 22 mmol/L (22-32); Chloride 104 mmol/L (98-107); Estimated Glomerular Filt Rate > 60 mL/min (>60); Globulin 2.7 g/dL (1.7-4.1); Glucose 98 mg/dL (80-110); HEMOLYSIS < 15 (0-50); Potassium 4.7 mmol/L (3.4-5.1); Sodium 138 mmol/L (137-145); Total Protein 7.2 g/dL (6.3-8.2)
[2024-12-30 08:24] LABS: Percent Iron Saturation 6 % (20-50); Total Iron Binding Capacity 383 ug/dL (261-462); Transferrin 309 mg/dL (206-381)
[2024-12-30 08:50] LABS: Ferritin 6 ng/mL (18-464)
== END ==
PROVIDERS: PCP Family Medicine; Referring Provider Nurse Practitioner Gerontology; Visit Provider Nurse Practitioner Gerontology
DX: D45 Polycythemia vera (principal)
CPT/HCPCS: 36415; 80053; 82728; 83540; 83550; 85025

== ENCOUNTER → 2025-01-13 06:54 | Outpatient (CLI) | payer OTHER, SELFPAY ==
[2025-01-13 08:18] LABS: Hematocrit 45.3 % (41-53)
== END ==
PROVIDERS: PCP Family Medicine; Referring Provider Internal Medicine Hematology & Oncology; Visit Provider Internal Medicine Hematology & Oncology
DX: D45 Polycythemia vera (principal)
CPT/HCPCS: 36415; 85014

== ENCOUNTER → 2025-02-17 06:45 | Outpatient (CLI) | payer OTHER, SELFPAY ==
[2025-02-17 07:36] LABS: Hematocrit 42.4 % (41-53); Hemoglobin 13.5 g/dL (13.5-17.5)
== END ==
PROVIDERS: PCP Family Medicine; Referring Provider Internal Medicine Hematology & Oncology; Visit Provider Internal Medicine Hematology & Oncology
DX: D45 Polycythemia vera (principal)
CPT/HCPCS: 36415; 85014; 85018

== ENCOUNTER → 2025-03-16 06:48 | Outpatient (CLI) | payer OTHER, SELFPAY ==
[2025-03-16 07:54] LABS: Hematocrit 42.7 % (41-53)
[2025-03-16 08:59] LABS: Ferritin 7 ng/mL (18-464)
== END ==
PROVIDERS: PCP Family Medicine; Referring Provider Internal Medicine Hematology & Oncology; Visit Provider Internal Medicine Hematology & Oncology
DX: D45 Polycythemia vera (principal)
CPT/HCPCS: 36415; 82728; 85014

== ENCOUNTER → 2025-04-21 06:44 | Outpatient (CLI) | payer OTHER, SELFPAY ==
[2025-04-21 08:09] LABS: Hematocrit 44.5 % (41-53)
== END ==
PROVIDERS: PCP Family Medicine; Referring Provider Internal Medicine Hematology & Oncology; Visit Provider Internal Medicine Hematology & Oncology
DX: D45 Polycythemia vera (principal)
CPT/HCPCS: 36415; 85014

== ENCOUNTER → 2025-05-12 15:06 | Outpatient (CLI) | payer OTHER, SELFPAY ==
--- NOTE | 2025-05-12 15:07 | DI.MRI.S_ITS ---
PROCEDURE: MR PELVIC PROSTATE PROTOCOL INDICATIONS: 70 y/o M w/ elevated PSA, please eval TECHNIQUE: Coronal HASTE, axial T1 FSE with fat saturation, 3-plane nonbreath-hold T2 FSE. After the administration of contrast, dynamic axial, delayed axial and coronal VIBE or 2-D FLASH with fat saturation through the pelvis. Diffusion weighted imaging and ADC was performed. COMPARISON: [facility], CT, CT ABDOMEN PELVIS WITH CONTRAST, 08/04/2024, 12:26. FINDINGS: Image quality: Diffusion weighted and dynamic contrast enhanced images are diagnostic. Prostate: Gland size is 5.1 x 4.6 x 4.7 cm; ellipsoid gland volume is 57 mL. Estimated PSA density is 0.0842 Transitional zone heterogenous nodules are present, either well encapsulated or mostly encapsulated, compatible with PI-RADS 1 or 2 likely BPH nodules. Left mid gland 1 x 1 x 1.1 cm lesion (5/17, 4/12). DWI score 4. T2 score 4. DCE positive. PI-RADS 4. Seminal vesicles appear clear. No extracapsular disease identified. Genitourinary system: Trabeculated urinary bladder, usually due to chronic obstruction. Bowel and peritoneum: No bowel obstruction or lower abdomen. No pathologic ascites Nodes and vessels: No aneurysmal artery identified. No enlarged lymph nodes by size criteria. Soft tissues: Small fat containing inguinal hernias. Bones: No aggressive appearing osseous abnormality in the pelvis. Enhancing L5 vertebral body lesion is present. IMPRESSION: PI-RADS 4 lesion measuring up to 1.1 cm is seen in the left posterolateral peripheral zone mid gland. No definite extracapsular disease or seminal vesicle involvement No enlarged lymph nodes by size criteria in the pelvis. Possibly enhancing L5 vertebral body lesion is seen. Differential includes vertebral hemangioma or metastatic disease, if targeted biopsies are positive. PSMA PET could further evaluate if clinically appropriate. Dictated by: Minor Ordonez M.D. on 05/14/2025 at 6:35 Approved by: Minor Ordonez M.D. on 05/14/2025 at 6:41
== END ==
PROVIDERS: PCP Family Medicine; Referring Provider Urology; Visit Provider Urology
DX: N42.9 Disorder of prostate, unspecified (principal); N32.89 Other specified disorders of bladder; R97.20 Elevated prostate specific antigen [PSA]; K40.90 Unilateral inguinal hernia, without obstruction or gangrene, not specified as recurrent
CPT/HCPCS: 72197; A9579

== ENCOUNTER → 2025-05-19 06:48 | Outpatient (CLI) | payer OTHER, SELFPAY ==
[2025-05-19 08:23] LABS: Hematocrit 45.7 % (41-53)
== END ==
PROVIDERS: PCP Family Medicine; Referring Provider Internal Medicine Hematology & Oncology; Visit Provider Internal Medicine Hematology & Oncology
DX: D45 Polycythemia vera (principal)
CPT/HCPCS: 36415; 85014

== ENCOUNTER → 2025-08-11 07:00 | Outpatient (CLI) | payer OTHER, SELFPAY ==
[2025-08-11 07:59] LABS: Hematocrit 43.5 % (41-53); Hemoglobin 13.5 g/dL (13.5-17.5)
== END ==
PROVIDERS: PCP Family Medicine; Referring Provider Internal Medicine Hematology & Oncology; Visit Provider Internal Medicine Hematology & Oncology
DX: D45 Polycythemia vera (principal)
CPT/HCPCS: 36415; 85014; 85018

== ENCOUNTER → 2025-09-07 17:42 | Outpatient (CLI) | payer OTHER, SELFPAY ==
[2025-09-07 18:07] LABS: Hematocrit 44.5 % (41-53); Hemoglobin 14.0 g/dL (13.5-17.5)
== END ==
PROVIDERS: PCP Family Medicine; Referring Provider Internal Medicine Hematology & Oncology; Visit Provider Internal Medicine Hematology & Oncology
DX: D45 Polycythemia vera (principal)
CPT/HCPCS: 36415; 85014; 85018